=== PATIENT | female | born 2000 | race Two or more races ===

== ENCOUNTER 2024-01-10 16:07 | Emergency (ER) | payer OTHER ==
[~2024-01-10] VITALS: Ht 162.6 cm; Wt 79.4 kg
[2024-01-10] MEDS ORDERED: PRENATAL + DHA1 EAC1 (16:16)
[2024-01-10] MEDS ORDERED: MEPERIDINE HCL/PF 25 MG/ML VIAL IM ONE (16:45)
[2024-01-10 17:29] LABS: HEMATOCRIT 39.5 % (36.0-45.00); HEMOGLOBIN 13.7 g/dL (12.0-15.00); MEAN CELL VOLUME 91.8 fL (80.00-100.00); MEAN CORPUSCULAR HEMOGLOBIN 31.9 pg (27.00-32.0); MEAN CORPUSCULAR HGB CONC 34.7 g/dl (32.0-36.0); PLATELET COUNT 247 K/uL (150-450)
[2024-01-10 18:25] LABS: URINE APPEARANCE Clear; URINE BILIRRUBIN Negative (NEGATIVE); URINE BLOOD Negative; URINE COLOR Yellow; URINE GLUCOSE Negative (NEGATIVE); URINE KETONE Trace (NEGATIVE); URINE LEUKOCYTE Negative; URINE NITRATE Negative; URINE PROTEIN Negative (NEGATIVE); URINE UROBILINOGEN 0.2 E.U./dl
[2024-01-10 18:26] LABS: URINE EPITHELIAL CELLS 17.6 uL (0.0-38.8); URINE RBC 5.6 uL (0.0-20.8); URINE WBC 6.3 uL (0.0-23.2)
[2024-01-10 19:07] LABS: URINE CAST 0.15 uL (0.0-1.40)
== END 2024-01-10 20:49 | disposition home or self-care (01) ==
LOC: ER 16:08
PROVIDERS: General Practice
DX: O26.891 Other specified pregnancy related conditions, first trimester (principal); R10.2 Pelvic and perineal pain; Z3A.08 8 weeks gestation of pregnancy; Z87.09 Personal history of other diseases of the respiratory system; Z88.8 Allergy status to other drugs, medicaments and biological substances